=== PATIENT | male | born 1965 | race Caucasian/White ===

== ENCOUNTER 2017-03-24 10:29 | Emergency (ER) | payer SELFPAY ==
[2017-03-24 11:20] LABS: ABS Basophils 0.1 10^3/ul (0-0.2); ABS Eosinophils 0.2 10^3/ul (0-0.6); ABS Lymphocytes 2.5 10^3/ul (1.0-4.8); ABS Monocytes 1.1 10^3/ul (0-0.8); ABS Neutrophils 10.3 10^3/ul (1.5-7.7); ABS Nucleated RBC 0 10^3/ul; Eosinophil % 1.7 % (0-6); Hematocrit 52 % (42-52); Hemoglobin 17.7 g/dl (14.0-18.0); Lymphocyte % 17.9 % (25-47); Mean Corpuscular HGB Conc 34 g/dl (31-36); Mean Corpuscular Hemoglobin 34 pg (27-31); Mean Corpuscular Volume 100 fL (80-94); Mean Platelet Volume 7 um3 (7.4-10.4); Nucleated Red Blood Cells % 0.1; Platelet Count 301 10^3/ul (150-450); Red Blood Count 5.16 10^6/ul (4.0-5.4); Red Cell Distribution Width 13 % (10.5-15); White Blood Count 14.3 10^3/ul (3.5-10.8)
[2017-03-24 11:36] LABS: EGFR Non-African American 104.2 (>60)
[2017-03-24] MEDS ORDERED: Iohexol 300* (CONTRAST) 10 ML SDV IV ONE (12:04)
--- NOTE | 2017-03-24 13:48 | RAD ---
CLINICAL HISTORY: Right inguinal pain COMPARISON: None TECHNIQUE: Multiple contiguous axial CT scans were obtained of the abdomen and pelvis after the administration of intravenous contrast. Coronal and sagittal multiplanar reformations are submitted for review. Oral contrast was administered. Delayed images were obtained through the abdomen and pelvis. FINDINGS: LUNG BASES: The lung bases are clear. LIVER: The liver is diffusely low in attenuation compared to the spleen. There are no focal hepatic parenchymal masses. BILE DUCTS: There is no intrahepatic or extrahepatic biliary dilatation. GALLBLADDER: The gallbladder is normal, without pericholecystic inflammatory change. PANCREAS: The pancreas is normal, without mass or ductal dilatation. SPLEEN: Normal in size and appearance. UPPER GI TRACT: Evaluation of the gastrointestinal tract is limited by incomplete gastric distention. The upper GI tract is unremarkable. SMALL BOWEL AND MESENTERY: The small bowel is normal in contour, course, and caliber. There is no obstruction or dilatation. COLON: There are multiple diverticula of the sigmoid colon. There is no pericolonic inflammatory change. There is a tubular, vermiform, hollow viscus that is blind ending, and originates from the cecum, consistent with a normal appendix. There is no periappendiceal inflammatory change. This is best seen on coronal images 35 through 42. ADRENALS: Normal bilaterally. KIDNEYS: The kidneys are normal in shape, size, contour, and axis. There is no hydronephrosis or nephrolithiasis. BLADDER: There is mild bladder wall thickening. PELVIC ORGANS: The prostate is mildly enlarged. The seminal vesicles are symmetric. AORTA: There is calcific atherosclerotic disease of the abdominal aorta and its branches, without aneurysmal dilatation IVC: Unremarkable LYMPH NODES: There is no lymphadenopathy by size criteria. ABDOMINAL WALL: There is post surgical change to the right inguinal region. There is a fat-containing left inguinal hernia. BONES AND SOFT TISSUES: Mild degenerative changes are noted. There is a fluid collection along the right ischio cavernosus muscle on axial image 87 measuring 3.4 x 0.9 x 1.5 cm in size. This measures simple fluid in attenuation. OTHER: None IMPRESSION: 1. POST SURGICAL CHANGE TO THE RIGHT INGUINAL REGION. 2. FAT-CONTAINING LEFT INGUINAL HERNIA. 3. ATHEROSCLEROSIS. 4. DIVERTICULOSIS. 5. MILD BLADDER WALL THICKENING. 6. MILDLY ENLARGED PROSTATE. 7. FATTY INFILTRATION OF THE LIVER 8. THERE IS A CYSTIC LESION OF THE RIGHT ISCHIO CAVERNOSUS MUSCLE THAT MEASURE SIMPLE FLUID IN ATTENUATION. THIS IS OF UNCLEAR ETIOLOGY BUT MAY REPRESENT A SMALL LYMPHOCELE. IF CLINICALLY INDICATED, THIS CAN BE FURTHER EVALUATED WITH CONTRAST ENHANCED MRI OF THE PELVIS.
[2017-03-24] MEDS ORDERED: Ibuprofen TAB* 800 MG PO ONE (13:59)
[2017-03-24 14:11] VITALS: BP 133/87
--- NOTE | 2017-03-26 08:31 | ED ---
Rickey Simpson Thomas, scribed for Charlie Vela MD on 03/24/17 at 1059 . Abdominal Pain/Male - HPI Summary HPI Summary: The patient is a 51 year old presenting with pain to the right inguinal area that began today at 09:30. The pain is rated 6/10. He has a history of right inguinal hernia that was repaired with mesh that occurred last year. The pain radiates to the testicles. - History of Current Complaint Chief Complaint: EDAbdPain Stated Complaint: RIGHT GROIN PAIN Time Seen by Provider: 03/24/17 10:39 Hx Obtained From: Patient Onset/Duration: Lasting Hours - onset today at 09:30, Still Present Timing: Constant Severity Currently: Moderate Pain Intensity: 6 Pain Scale Used: 0-10 Numeric Location: Other - Right inguinal area Radiates: Yes Radiates to: Other - Testicles Aggravating Factor(s): Other: - Palpation Alleviating Factor(s): Nothing Associated Signs And Symptoms: Negative: Fever - Allergies/Home Medications Allergies/Adverse Reactions: Allergies Allergy/AdvReac Type Severity Reaction Status Date / Time lactose Allergy Mild GI Upset Verified 03/24/17 13:26 Penicillins Allergy Unknown Unknown Verified 03/24/17 13:26 Reaction Details avoids NSAIDS Allergy See Comment Uncoded 07/08/15 14:15 PMH/Surg Hx/FS Hx/Imm Hx Cardiovascular History: Denies: Hx Hypertension Respiratory History: Denies: Hx Asthma GI History: Reports: Other GI Disorders - Hx inguinal hernia - Surgical History Surgery Procedure, Year, and Place: right HERNIA REPAIR 2000, buttock 2012; abdominal hernia Infectious Disease History: No Infectious Disease History: Denies: Traveled Outside the [place] in Last 30 Days - Family History Known Family History: Positive: Other - alcoholism - Social History Alcohol Use: Weekly Alcohol Amount: 4-5 beers Substance Use Type: Reports: Excessive Caffeine Smoking Status (MU): Heavy Every Day Tobacco Smoker Type: Cigarettes Amount Used/How Often: 1 pk daily Review of Systems Negative: Fever Positive: Other - Right inguinal pain that radiates to testicles All Other Systems Reviewed And Are Negative: Yes Physical Exam - Summary Physical Exam Summary: VITAL SIGNS: Reviewed. GENERAL: Patient is a well-developed and nourished male who is lying comfortable in the stretcher. Patient is not in any acute respiratory distress. HEAD AND FACE: Normocephalic and atraumatic. EYES: PERRLA, EOMI x 2, No injected conjunctiva. EARS: Hearing grossly intact. Ear canals and tympanic membranes are WNL. MOUTH: Oropharynx within normal limits. NECK: Supple, trachea is midline, no adenopathy, no JVD. CHEST: Symmetric, no tenderness at palpation LUNGS: Clear to auscultation bilaterally. No wheezing or crackles. CVS: RRR, S1 and S2 present, no murmurs or gallops appreciated. ABDOMEN: Soft. He has right inguinal hernia tenderness. There is no hernia or protrusion. No signs of distention. Positive bowel sounds. No rebound no guarding, and no masses palpated. No abdominal bruit or pulsations. EXTREMITIES: FROM in all major joints, no edema, no cyanosis or clubbing. NEURO: Alert and oriented x 3. No acute neurological deficits. Speech is normal. SKIN: Dry and warm : Circumcised penis, both testicles are descended. There is no testicular tenderness. No masses are appreciated. Positive cremasteric reflex. Triage Information Reviewed: Yes Vital Signs On Initial Exam: Initial Vitals Temp Pulse Resp BP Pulse Ox 98.1 F 125 16 141/98 98 03/24/17 10:34 03/24/17 10:34 03/24/17 10:34 03/24/17 10:34 03/24/17 10:34 Vital Signs Reviewed: Yes Diagnostics - Vital Signs Vital Signs Temp Pulse Resp BP Pulse Ox 03/24/17 10:48 175/96 03/24/17 10:34 98.1 F 125 16 141/98 98 - Laboratory Result Diagrams: 03/24/17 11:10 03/24/17 11:10 Lab Statement: Any lab studies that have been ordered have been reviewed, and results considered in the medical decision making process. - CT CT Abd/Pel CT Interpretation: No Acute Changes - 1. POST SURGICAL CHANGE TO THE RIGHT INGUINAL REGION. 2. FAT-CONTAINING LEFT INGUINAL HERNIA. 3. ATHEROSCLEROSIS. 4. DIVERTICULOSIS. 5. MILD BLADDER WALL THICKENING.6. MILDLY ENLARGED PROSTATE. 7. FATTY INFILTRATION OF THE LIVER 8. THERE IS A CYSTIC LESION OF THE RIGHT ISCHIO CAVERNOSUS MUSCLE THAT MEASURE SIMPLE FLUID IN ATTENUATION. THIS IS OF UNCLEAR ETIOLOGY BUT MAY REPRESENT A SMALL LYMPHOCELE. IF CLINICALLY INDICATED, THIS CAN BE FURTHER EVALUATED WITH CONTRAST ENHANCED MRI OF THE PELVIS. Dr. Vela has reviewed this report. CT Interpretation Completed By: Radiologist Abdominal Pain Fem Course/Dx - Course Assessment/Plan: The patient is a 51 year old presenting with pain to the right inguinal area that began today at 09:30. The pain is rated 6/10. He has a history of right inguinal hernia that was repaired with mesh that occurred last year. The pain radiates to the testicles. Test results are without significant abnormality except WBC 14.3, CRP 19.3. CT Abd/Pel shows 1. POST SURGICAL CHANGE TO THE RIGHT INGUINAL REGION. 2. FAT-CONTAINING LEFT INGUINAL HERNIA. 3. ATHEROSCLEROSIS. 4. DIVERTICULOSIS. 5. MILD BLADDER WALL THICKENING.6. MILDLY ENLARGED PROSTATE. 7. FATTY INFILTRATION OF THE LIVER 8. THERE IS A CYSTIC LESION OF THE RIGHT ISCHIO CAVERNOSUS MUSCLE THAT MEASURE SIMPLE FLUID IN ATTENUATION. THIS IS OF UNCLEAR ETIOLOGY BUT MAY REPRESENT A SMALL LYMPHOCELE. IF CLINICALLY INDICATED, THIS CAN BE FURTHER EVALUATED WITH CONTRAST ENHANCED MRI OF THE PELVIS. Since there is no incarcerated hernia, I discussed the findings and test results with the patient, and the patient will follow up with surgery. The patient is hemodynamically stable and alert and oriented x3. - Diagnoses Provider Diagnoses: Non incarcerated inguinal hernia Discharge - Discharge Plan Condition: Stable Disposition: HOME Prescriptions: Naproxen [Naproxen 500 mg] 500 mg PO BID #20 tablet Patient Education Materials: Inguinal Hernia (ED) Referrals: Gerald Horn MD [Medical Doctor] - 3 Days Additional Instructions: Follow up with Dr. Horn, surgery, in three days. Return to the emergency department for any new or worsening symptoms. The documentation as recorded by the Rickey mckeon Thomas accurately reflects the service I personally performed and the decisions made by Dane ruth Walter, MD.
== END 2017-03-24 14:17 | disposition home or self-care (01) ==
LOC: ED 10:29
DX: K40.90 Unilateral inguinal hernia, without obstruction or gangrene, not specified as recurrent (principal); F17.210 Nicotine dependence, cigarettes, uncomplicated; Z88.0 Allergy status to penicillin
CPT/HCPCS: 36415; 74177; 80053; 85025; 86140; 96374; 99283; A9270-GY; Q9967

== ENCOUNTER 2017-04-13 15:32 | Emergency (ER) | payer SELFPAY ==
[2017-04-13] MEDS ORDERED: Morphine INJ* 4 MG/ML 1 ML CARPUJECT IV ONE ×2 (17:28→20:23)
[2017-04-13] MEDS ORDERED: Ondansetron INJ* 2 MG/ML VIAL IV ONE (17:28)
[2017-04-13] MEDS ORDERED: NS 0.9% 1000 ML* 1,000 ML IV ONE (17:28)
[2017-04-13] MEDS ORDERED: Morphine INJ* 4 MG/ML 1 ML SYRINGE (NEW SYRINGE VERSION) ONE ×2 (18:04→20:29)
[2017-04-13 18:32] LABS: Hematocrit 50 % (42-52); Hemoglobin 17.6 g/dl (14.0-18.0); Mean Corpuscular HGB Conc 35 g/dl (31-36); Mean Corpuscular Hemoglobin 35 pg (27-31); Mean Corpuscular Volume 100 fL (80-94); Mean Platelet Volume 7 um3 (7.4-10.4); Platelet Count 324 10^3/ul (150-450); Red Blood Count 5.05 10^6/ul (4.0-5.4); Red Cell Distribution Width 13 % (10.5-15); White Blood Count 16.9 10^3/ul (3.5-10.8)
[2017-04-13 18:37] LABS: ABS Basophils 0.2 10^3/ul (0-0.2); ABS Eosinophils 0.3 10^3/ul (0-0.6); ABS Lymphocytes 3.6 10^3/ul (1.0-4.8); ABS Monocytes 0.7 10^3/ul (0-0.8); ABS Neutrophils 11.6 10^3/ul (1.5-7.7); ABS Nucleated RBC 0 10^3/ul; Nucleated Red Blood Cells % 0
[2017-04-13 18:40] LABS: INR 0.82 (0.77-1.02)
[2017-04-13 18:48] LABS: EGFR Non-African American 93.3 (>60)
[2017-04-13] MEDS ORDERED: Iohexol 300* (CONTRAST) 10 ML SDV IV ONE (19:33)
[2017-04-13 19:46] LABS: Urine Appearance Clear; Urine Blood Negative (Negative); Urine Color Straw; Urine Ketones Negative (Negative); Urine Protein Negative (Negative); Urine Specific Gravity 1.003 (1.010-1.030); Urine Urobilinogen Negative (Negative)
--- NOTE | 2017-04-13 21:18 | RAD ---
INDICATION: Right inguinal pain pain COMPARISON: CT abdomen and pelvis March 24, 2017 TECHNIQUE: Axial source images were obtained from the hemidiaphragms to the symphysis pubis following administration of oral and intravenous contrast. 98 mL Omnipaque 300 was utilized. Coronal and sagittal reconstructed images were acquired. Lung bases: The lung bases are clear. Liver: The liver is mildly enlarged with findings of hepatic steatosis. There are no masses. There is no ductal dilatation. Gallbladder: There are no calcified gallstones. There is no evidence of wall thickening or pericholecystic fluid. Spleen: The spleen is normal in size. There are no masses. Pancreas: There is no focal pancreatic mass or ductal dilatation. Adrenal glands: There is no evidence of adrenal mass. Kidneys: The kidneys are normal in size and position. There are prompt nephrograms and there is prompt excretion bilaterally. There are no renal parenchymal masses. There is no evidence of nephrolithiasis. Adenopathy: There is no evidence of adenopathy by size criteria. Fluid collections: There are no free or localized fluid collections. Vessels:There are atherosclerotic changes involving the aorta and iliac vessels. There is no focal aneurysm. The IVC appears normal. GI tract: There are no acute CT bowel findings. There is no obstruction. The stomach and small bowel appear normal. There are scant diverticula of the colon. The appendix is visualized and appears normal. There is no obstruction. Pelvic organs: The prostate is enlarged Bladder: There is trabeculation of bladder wall. Abdominal and pelvic soft tissues: There are postoperative changes in the right inguinal region, unchanged. There is a small fat-containing left inguinal hernia, unchanged. Osseous structures: There are no acute osseous findings. Other: There is a small elliptical focus of decreased attenuation involving the right ischiocavernosus muscle. This was described previously and appears unchanged. The significance, if any, is uncertain. Please for also to March 24, 2017 report. IMPRESSION: 1. No acute CT findings or interval changes. 2. Postsurgical changes right inguinal region, unchanged. Small fat-containing left inguinal hernia, unchanged. 3. BPH with trabeculation of bladder wall. 4. Stable small cystic lesion right ischiocavernous muscle. 5. Hepatic steatosis.
[2017-04-13] MEDS ORDERED: Sulfamethox/Trimethoprim DS 800/160* TAB PO ONE (21:38)
--- NOTE | 2017-04-13 21:45 | ED ---
Rickey Simpson Thomas, scribed for Haris Houston MD on 04/13/17 at 1734 . Abdominal Pain/Male - HPI Summary HPI Summary: The patient is a 51 year old male presenting to the emergency department complaining of pain to the right inguinal area. He has a history of inguinal hernia with previous surgical repair. The pain is rated 9/10. The pain radiates to his testicles. The pain is described as pressure. The patient reports he has an urge to defecate and pass flatulence. The patient denies anorexia, constipation, and diarrhea. The patient was evaluated at [facility] on 03/24/17 for the same complaint. He was unable to follow up with surgery. - History of Current Complaint Chief Complaint: EDAbdPain Stated Complaint: RT GROIN PAIN Time Seen by Provider: 04/13/17 17:11 Hx Obtained From: Patient Onset/Duration: Lasting Weeks, Still Present Timing: Constant Severity Currently: Severe Pain Intensity: 9 Pain Scale Used: 0-10 Numeric Location: Other - R inguinal area Radiates: Yes Radiates to: Other - Testicles Character: Other: - Pressure Alleviating Factor(s): Nothing Associated Signs And Symptoms: Negative: Constipation, Diarrhea - Allergies/Home Medications Allergies/Adverse Reactions: Allergies Allergy/AdvReac Type Severity Reaction Status Date / Time lactose Allergy Mild GI Upset Verified 04/13/17 15:44 Penicillins Allergy Unknown Unknown Verified 04/13/17 15:44 Reaction Details avoids NSAIDS Allergy See Comment Uncoded 04/13/17 15:44 PMH/Surg Hx/FS Hx/Imm Hx Endocrine/Hematology History: Denies: Hx Diabetes Cardiovascular History: Denies: Hx Hypertension Respiratory History: Denies: Hx Asthma GI History: Reports: Other GI Disorders - Hx inguinal hernia History: Denies: Hx Renal Disease - Surgical History Surgery Procedure, Year, and Place: right HERNIA REPAIR 2000, buttock 2012; abdominal hernia Infectious Disease History: No Infectious Disease History: Denies: Traveled Outside the [place] in Last 30 Days - Family History Known Family History: Positive: Other - alcoholism - Social History Alcohol Use: Weekly Alcohol Amount: 4-5 beers Substance Use Type: Reports: Excessive Caffeine Smoking Status (MU): Heavy Every Day Tobacco Smoker Type: Cigarettes Amount Used/How Often: 1 pk daily Review of Systems Negative: Fever Positive: Abdominal Pain. Negative: Vomiting, Nausea All Other Systems Reviewed And Are Negative: Yes Physical Exam - Summary Physical Exam Summary: General: well-appearing, no pain distress Skin: warm, color reflects adequate perfusion, dry Head: normal Eyes: EOMI, MACY ENT: normal Neck: supple, nontender Respiratory: CTA, breath sounds present Cardiovascular: RRR Abdomen: Soft. He is tender to the RLQ. Bowel: high-pitched Musculoskeletal: normal, strength/ROM intact Neurological: normal, sensory/motor intact, A&O x3 Psychological: affect/mood appropriate Triage Information Reviewed: Yes Vital Signs On Initial Exam: Initial Vitals Temp Pulse Resp BP Pulse Ox 96.9 F 91 17 161/99 98 04/13/17 15:38 04/13/17 15:38 04/13/17 15:38 04/13/17 15:38 04/13/17 15:38 Vital Signs Reviewed: Yes Diagnostics - Vital Signs Vital Signs Temp Pulse Resp BP Pulse Ox 04/13/17 15:38 96.9 F 91 17 161/99 98 - Laboratory Lab Results: Lab Results 04/13/17 04/13/17 04/13/17 Range/Units 18:20 18:20 18:20 WBC 16.9 H (3.5-10.8) 10^3/ul RBC 5.05 (4.0-5.4) 10^6/ul Hgb 17.6 (14.0-18.0) g/dl Hct 50 (42-52) % MCV 100 H (80-94) fL MCH 35 H (27-31) pg MCHC 35 (31-36) g/dl RDW 13 (10.5-15) % Plt Count 324 (150-450) 10^3/ul MPV 7 L (7.4-10.4) um3 Neut % (Auto) 70.7 (38-83) % Lymph % (Auto) 22.0 L (25-47) % Webb % (Auto) 4.0 (0-7) % Eos % (Auto) 2.0 (0-6) % Baso % (Auto) 1.3 (0-2) % Absolute Neuts (auto) 11.6 H (1.5-7.7) 10^3/ul Absolute Lymphs (auto) 3.6 (1.0-4.8) 10^3/ul Absolute Monos (auto) 0.7 (0-0.8) 10^3/ul Absolute Eos (auto) 0.3 (0-0.6) 10^3/ul Absolute Basos (auto) 0.2 (0-0.2) 10^3/ul Absolute Nucleated RBC 0 10^3/ul Nucleated RBC % 0 INR (Anticoag Therapy) 0.82 (0.77-1.02) APTT 32.0 (26.0-36.3) seconds Sodium 140 (133-145) mmol/L Potassium 4.5 (3.5-5.0) mmol/L Chloride 107 (101-111) mmol/L Carbon Dioxide 26 (22-32) mmol/L Anion Gap 7 (2-11) mmol/L BUN 6 (6-24) mg/dL Creatinine 0.87 (0.67-1.17) mg/dL Est GFR ( Amer) 119.9 (>60) Est GFR (Non-Af Amer) 93.3 (>60) BUN/Creatinine Ratio 6.9 L (8-20) Glucose 87 (70-100) mg/dL Lactic Acid (0.5-2.0) mmol/L Calcium 9.8 (8.6-10.3) mg/dL Total Bilirubin 0.30 (0.2-1.0) mg/dL AST 21 (13-39) U/L ALT 17 (7-52) U/L Alkaline Phosphatase 81 (34-104) U/L C-Reactive Protein 3.73 (< 5.00) mg/L Total Protein 8.6 (6.4-8.9) g/dL Albumin 4.6 (3.2-5.2) g/dL Globulin 4.0 (2-4) g/dL Albumin/Globulin Ratio 1.2 (1-3) Lipase 65 (11.0-82.0) U/L Urine Color Urine Appearance Urine pH (5-9) Ur Specific [place] (1.010-1.030) Urine Protein (Negative) Urine Ketones (Negative) Urine Blood (Negative) Urine Nitrate (Negative) Urine Bilirubin (Negative) Urine Urobilinogen (Negative) Ur Leukocyte Esterase (Negative) Urine Glucose (Negative) Salicylates < 2.50 (<30) mg/dL Acetaminophen < 15 mcg/mL Serum Alcohol 221 H (<10) mg/dL 04/13/17 04/13/17 Range/Units 18:20 19:30 WBC (3.5-10.8) 10^3/ul RBC (4.0-5.4) 10^6/ul Hgb (14.0-18.0) g/dl Hct (42-52) % MCV (80-94) fL MCH (27-31) pg MCHC (31-36) g/dl RDW (10.5-15) % Plt Count (150-450) 10^3/ul MPV (7.4-10.4) um3 Neut % (Auto) (38-83) % Lymph % (Auto) (25-47) % Webb % (Auto) (0-7) % Eos % (Auto) (0-6) % Baso % (Auto) (0-2) % Absolute Neuts (auto) (1.5-7.7) 10^3/ul Absolute Lymphs (auto) (1.0-4.8) 10^3/ul Absolute Monos (auto) (0-0.8) 10^3/ul Absolute Eos (auto) (0-0.6) 10^3/ul Absolute Basos (auto) (0-0.2) 10^3/ul Absolute Nucleated RBC 10^3/ul Nucleated RBC % INR (Anticoag Therapy) (0.77-1.02) APTT (26.0-36.3) seconds Sodium (133-145) mmol/L Potassium (3.5-5.0) mmol/L Chloride (101-111) mmol/L Carbon Dioxide (22-32) mmol/L Anion Gap (2-11) mmol/L BUN (6-24) mg/dL Creatinine (0.67-1.17) mg/dL Est GFR ( Amer) (>60) Est GFR (Non-Af Amer) (>60) BUN/Creatinine Ratio (8-20) Glucose (70-100) mg/dL Lactic Acid 1.8 (0.5-2.0) mmol/L Calcium (8.6-10.3) mg/dL Total Bilirubin (0.2-1.0) mg/dL AST (13-39) U/L ALT (7-52) U/L Alkaline Phosphatase (34-104) U/L C-Reactive Protein (< 5.00) mg/L Total Protein (6.4-8.9) g/dL Albumin (3.2-5.2) g/dL Globulin (2-4) g/dL Albumin/Globulin Ratio (1-3) Lipase (11.0-82.0) U/L Urine Color Straw Urine Appearance Clear Urine pH 5.0 (5-9) Ur Specific [place] 1.003 L (1.010-1.030) Urine Protein Negative (Negative) Urine Ketones Negative (Negative) Urine Blood Negative (Negative) Urine Nitrate Negative (Negative) Urine Bilirubin Negative (Negative) Urine Urobilinogen Negative (Negative) Ur Leukocyte Esterase Negative (Negative) Urine Glucose Negative (Negative) Salicylates (<30) mg/dL Acetaminophen mcg/mL Serum Alcohol (<10) mg/dL Result Diagrams: 04/13/17 18:20 04/13/17 18:20 Lab Statement: Any lab studies that have been ordered have been reviewed, and results considered in the medical decision making process. - CT CT Abd/Pel CT Interpretation: Positive (See Comments) - 1. No acute CT findings or interval changes. 2. Postsurgical changes right inguinal region, unchanged. Small fat-containing left inguinal hernia, unchanged. 3. BPH with trabeculation of bladder wall. 4. Stable small cystic lesion right ischiocavernous muscle. 5. Hepatic steatosis. Dr. Houston has reviewed this report. CT Interpretation Completed By: Radiologist Abdominal Pain Fem Course/Dx - Course Course Of Treatment: Medications reviewed. Allergies noted. BP noted and patient urged to follow up with primary care. DISCUSSED RESULTS WITH PATIENT. RX BACTRIM DUE TO ELEVATED WBC (NO FEVER IN ED) AND CYSTIC LESION SEEN ON ISCHIOCAVERNOSUS MUSCLE. F/U PMD AND SURGERY; RETURN IF WORSE. - Diagnoses Provider Diagnoses: Elevated BP without diagnosis of hypertension, Right inguinal pain, Inguinal hernia Discharge - Discharge Plan Condition: Stable Disposition: HOME Prescriptions: Sulfamethox/Trimethoprim DS* [Bactrim DS 800/160 TAB*] 1 tab PO BID #20 tab Patient Education Materials: Inguinal Hernia (ED), Abdominal Pain (ED) Referrals: [facility] [Provider Group] [facility] [place] [facility]FERR[facility] [Outside] Additional Instructions: FOLLOW UP WITH YOUR PRIMARY CARE DOCTOR AND SURGERY. RETURN TO THE EMERGENCY DEPARTMENT FOR ANY WORSENING OF YOUR CONDITION OR QUESTIONS OR CONCERNS. YOUR BLOOD PRESSURE WAS ELEVATED TODAY; FOLLOW UP WITH YOUR PRIMARY CARE DOCTOR WITHIN THE NEXT 1 WEEK. The documentation as recorded by the Rickey mckeon Thomas accurately reflects the service I personally performed and the decisions made by me, Haris Houston MD.
[2017-04-13 22:13] VITALS: BP 132/87
== END 2017-04-13 22:13 | disposition home or self-care (01) ==
LOC: ED 15:32
DX: R03.0 Elevated blood-pressure reading, without diagnosis of hypertension (principal); K40.90 Unilateral inguinal hernia, without obstruction or gangrene, not specified as recurrent; R10.9 Unspecified abdominal pain; F17.210 Nicotine dependence, cigarettes, uncomplicated; F10.129 Alcohol abuse with intoxication, unspecified; Y90.8 Blood alcohol level of 240 mg/100 ml or more
CPT/HCPCS: 36415; 74177; 80053; 80320; 80329; 81003; 83605; 83690; 85025; 85610; 85730; 86140; 96374; 96375; 99284; A9270-GY; G0480; J2270; J2405; Q9967